=== PATIENT | female | born 1940 | race Caucasian/White ===

== ENCOUNTER → 2016-07-16 | Outpatient (CLI) | payer MEDICARE, OTHER ==
[~2016-07-16] MED LIST: ALBUTEROL2.5 MG/0.5 INH; ALENDRONATE SOD70 MG PO; ASPIRIN LO-DOSE81 MG PO; ASTELIN NOSE; BENADRYL25 MG PO; COMPAZINE 10MG10 MG PO; IMBRUVICA140 MG PO; IMODIUM2 MG PO; LACTINEX (FLORA1 TAB PO; LASIX20 MG PO; LEVAQUIN 750 M750 MG PO; LEVOTHROID (S200 MCG PO; LIPITOR40 MG PO; NORCO 10-325 T1 EACH PO; NORVASC2.5 MG PO; OXYGEN M-15 INH; PRAVACHOL20 MG PO; PRINIVIL OR ZES10 MG PO; PROBIOTIC1 EAC1 PO; PROTONIX40 MG PO; ROBAXIN750 MG PO; SINGULAIR10 MG PO; SPIRIVA HANDIHA1 KIT INH; TESSALON PERLE100 MG PO; TOPROL XL 5050 MG PO; XANAX1 MG PO; ZOLOFT25 MG PO; atrovent INH
== END | disposition disaster alternative care site (69) ==
LOC: GRAD 12:10
DX: R33.9 Retention of urine, unspecified (principal); N26.1 Atrophy of kidney (terminal); R93.421 Abnormal radiologic findings on diagnostic imaging of right kidney; R93.422 Abnormal radiologic findings on diagnostic imaging of left kidney

== ENCOUNTER → 2016-09-18 | Outpatient (CLI) | payer MEDICARE, OTHER | END | disposition disaster alternative care site (69) | LOC: LGSMG 12:47 | DX: E11.69 Type 2 diabetes mellitus with other specified complication (principal) ==

== ENCOUNTER → 2016-09-19 | Outpatient (CLI) | payer MEDICARE, OTHER | END | disposition disaster alternative care site (69) | LOC: GRAD 09:04 | DX: N18.4 Chronic kidney disease, stage 4 (severe) (principal); Q61.02 Congenital multiple renal cysts; N26.1 Atrophy of kidney (terminal) ==

== ENCOUNTER → 2016-09-20 | Outpatient (CLI) | payer MEDICARE, OTHER | END | disposition disaster alternative care site (69) | LOC: LGSMG 13:27 | DX: N18.9 Chronic kidney disease, unspecified (principal); E11.69 Type 2 diabetes mellitus with other specified complication ==

== ENCOUNTER → 2016-10-21 | Outpatient (CLI) | payer MEDICARE, OTHER | END | disposition disaster alternative care site (69) | LOC: GNUT 08:49 | DX: E11.22 Type 2 diabetes mellitus with diabetic chronic kidney disease (principal); N18.4 Chronic kidney disease, stage 4 (severe) ==

== ENCOUNTER → 2016-10-30 | Outpatient (CLI) | payer MEDICARE, OTHER | LOC: LGSMG 11:20 | DX: E03.9 Hypothyroidism, unspecified (principal) ==